=== PATIENT | male | born 1980 | race Caucasian/White ===

== ENCOUNTER → 2016-12-04 | Outpatient (CLI) | payer OTHER ==
[2016-11-04 13:40] VITALS: BP 148/85
[~2016-12-04] MED LIST: ESOM40CA PO
--- NOTE | 2016-12-04 14:53 | CARD ---
APPROVED REPORT EXAM: Two-dimensional and M-mode echocardiogram with Doppler and color Doppler. Other Information Quality : GoodHR: 78bpm Rhythm : NSR INDICATION Chest Pain RISK FACTORS Hypertension Obesity Smoking 2D DIMENSIONS RVDd3.4 (2.9-3.5cm)Left Atrium(2D)2.3 (1.6-4.0cm) IVSd1.2 (0.7-1.1cm)Aortic Root(2D)2.3 (2.0-3.7cm) LVDd4.9 (3.9-5.9cm)LVOT Diameter3.5 (1.8-2.4cm) PWd1.2 (0.7-1.1cm)LVDs3.3 (2.5-4.0cm) FS (%) 33.4 %SV71.0 ml LVEF(%)61.9 (>50%) Aortic Valve AoV Peak Chris.140.9cm/sAoV VTI26.1cm AO Peak GR.7.9mmHgLVOT Peak Chris.130.2cm/s AO Mean GR.3mmHgAVA (VMAX)8.71cm2 Mitral Valve MV E Oyxbcofp10.0cm/sMV E Peak Gr.3mmHg MV DECEL [id number] A Rinafxak45.6cm/s MV E Mean Gr.1mmHgE/A Ratio1.6 MV A [id number] Pulmonary Valve PV Peak Dfzeczdr85.6cm/s Pulmonary Vein S1 Ugngwgdl62.1cm/sD2 Bcelttzg25.7cm/s PVa [id number] LEFT VENTRICLE The left ventricle is normal size. There is normal left ventricular wall thickness. The left ventricu lar systolic function is normal and the ejection fraction is within normal range. The Ejection Fracti on is 60-65%. There is normal LV segmental wall motion. The left ventricular diastolic function and f illing is normal for age. RIGHT VENTRICLE The right ventricle is normal size. There is normal right ventricular wall thickness. The right ventr icular systolic function is normal. ATRIA The left atrium size is normal. The right atrium size is normal. The interatrial septum is intact wit h no evidence for an atrial septal defect or patent foramen ovale as noted on 2-D or Doppler imaging. AORTIC VALVE The aortic valve is mildly sclerotic. The aortic valve is trileaflet. Doppler and Color Flow revealed no significant aortic regurgitation. There is no significant aortic valvular stenosis. MITRAL VALVE The mitral valve leaflets are mildly thickened. There is no evidence of mitral valve prolapse. There is no mitral valve stenosis. Doppler and Color Flow revealed no mitral valve regurgitation noted. TRICUSPID VALVE Doppler and Color Flow revealed no tricuspid valve regurgitation noted. Unable to determine pulmonary artery pressure at exam time. PULMONIC VALVE The pulmonic valve is not well visualized but appears to open adequately. Doppler and Color Flow reve aled no pulmonic valvular regurgitation. There is no pulmonic valvular stenosis by spectral Doppler. GREAT VESSELS The aortic root is normal in size. The ascending aorta is normal in size. The IVC is normal in size a nd collapses >50% with inspiration. PERICARDIAL EFFUSION There is no evidence of significant pericardial effusion. Critical Notification Critical Value: No <Conclusion> The left ventricular systolic function is normal and the ejection fraction is within normal range. Th e Ejection Fraction is 60-65%. There is normal LV segmental wall motion.
== END | disposition home or self-care (01) ==
LOC: ECHO 14:06
PROVIDERS: ATTEND Internal Medicine Cardiovascular Disease
DX: R07.9 Chest pain, unspecified (principal)
CPT/HCPCS: 93306

== ENCOUNTER → 2021-08-26 | Outpatient (CLI) | payer OTHER ==
[2016-11-04 13:40] VITALS: BP 148/85
--- NOTE | 2021-08-26 14:59 | KCIC ---
EXAM: Lumbar spine MRI without contrast. HISTORY: Lower back pain. Sciatica. TECHNIQUE: Multiplanar, multisequence magnetic resonance imaging of the lumbar spine was performed wi thout contrast. COMPARISON: None. FINDINGS: There is a transitional lumbosacral segment. This is considered a partially lumbarized S1 s egment for this dictation. There is mild scoliosis. There is disc desiccation at L5-S1. There are few small endplate Schmorl's nodes. There are few small benign osseous hemangiomas. There is no suspicio us osseous lesion. There is no acute or subacute fracture. The conus terminates at L1. At L1-L2, L2-L3 and L3-L4, there is no stenosis. At L4-L5, there is mild bilateral facet arthropathy. There is minimal left foraminal stenosis. At L5-S1, there is a right lateral recess to foraminal disc protrusion and annular tear superimposed on a disc bulge and endplate remodeling. There is mild right greater than left foraminal stenosis wit h abutment the exiting right L5 nerve root. IMPRESSION: 1. Degenerative change involving the lumbar spine, described in detail above. This is associated with mild right greater than left foraminal stenosis and abutment the exiting right L5 nerve root at L5-S 1. 2. Transitional lumbosacral segment, considered a lumbarized S1 segment for this dictation. This is a normal variant. Electronically signed by: Josi Borrero MD (08/26/2021 2:57 PM) [facility]
== END ==
LOC: KCIC MRI 13:38
DX: M47.816 Spondylosis without myelopathy or radiculopathy, lumbar region (principal); M41.86 Other forms of scoliosis, lumbar region; D18.09 Hemangioma of other sites; M48.061 Spinal stenosis, lumbar region without neurogenic claudication; M54.41 Lumbago with sciatica, right side; M48.8X6 Other specified spondylopathies, lumbar region; M51.27 Other intervertebral disc displacement, lumbosacral region
CPT/HCPCS: 72148